=== PATIENT | male | born 1985 | race Caucasian/White ===

== ENCOUNTER 2018-09-11 12:43 | Emergency (ER) | payer OTHER ==
[2018-09-11] MEDS ORDERED: IPRATROPIUM/ALBUTEROL 0.5-2.5 MG/3 ML AMPUL NEB ONE (14:35)
[2018-09-11 15:46] LABS: A TYPE INFLUENZA AG NEGATIVE (NEGATIVE); B INFLUENZA AG NEGATIVE (NEGATIVE)
--- NOTE | 2018-09-11 15:52 | ER Document Report ---
HPI - HPI Time Seen by Provider: 09/11/18 14:11 Pain Level: 4 Notes: Patient is an otherwise healthy 33-year-old man who presents to the emergency department with complaints of sore throat, chest congestion, body aches and nasal congestion. He reports a fever yesterday of 101. He denies any nausea, vomiting or diarrhea. - CONSTITUTIONAL Constitutional: REPORTS: Fever. DENIES: Chills - EENT EENT: REPORTS: Sore Throat Past Medical History - General Information source: Patient - Social History Smoking Status: Current Every Day Smoker Chew tobacco use (# tins/day): No Frequency of alcohol use: None Drug Abuse: None Family History: Reviewed & Not Pertinent Patient has suicidal ideation: No Patient has homicidal ideation: No - Past Medical History Cardiac Medical History: Reports: Hx Hypertension Renal/ Medical History: Denies: Hx Peritoneal Dialysis Vertical Provider Document - CONSTITUTIONAL Notes: PHYSICAL EXAMINATION: GENERAL: Well-appearing, well-nourished and in no acute distress. HEAD: Atraumatic, normocephalic. EYES: Pupils equal round extraocular movements intact, conjunctiva are normal. ENT: Nares patent with clear rhinorrhea. Tonsils mildly erythematous but without swelling or exudates. NECK: Normal range of motion no cervical lymphadenopathy., LUNGS: No respiratory distress, mild expiratory wheezes noted bilaterally. Musculoskeletal: Normal range of motion NEUROLOGICAL: Normal speech, normal gait. PSYCH: Normal mood, normal affect. SKIN: Warm, Dry, normal turgor, no rashes or lesions noted. - INFECTION CONTROL TRAVEL OUTSIDE OF THE [place] IN LAST 30 DAYS: No Course - Re-evaluation Re-evalutation: Patient was given one treatment of DuoNeb which resolved his wheezing. Rapid strep was negative, influenza was negative. Patient will be discharged home with likely viral upper respiratory illness. Patient does report he is out of his blood pressure medication, I will refill this for him as well as he states he is in between doctors at the moment while he is getting approval for the [place]. - Vital Signs Vital signs: Temp Pulse Resp BP Pulse Ox 98.3 F 110 H 17 157/107 H 100 09/11/18 12:59 09/11/18 12:59 09/11/18 12:59 09/11/18 12:59 09/11/18 12:59 Discharge - Discharge Clinical Impression: Medication refill, Viral upper respiratory infection Hypertension Qualifiers: Hypertension type: unspecified Qualified Code(s): I10 - Essential (primary) hypertension Condition: Stable Disposition: HOME, SELF-CARE Additional Instructions: Your symptoms are most likely due to a viral infection it should resolve over the next 7-14 days. You should take arai-ved-sypvlgf guanfacine per bottle instructions to help thin the mucus. For nasal congestion: I would recommend that you get upyw-bpn-ciacogt oxymetazoline also known is afrin. Use only per bottle instructions and be sure to never use this for more than 3 days if you can develop severe rebound congestion. You may also use tylenol or ibuprofen as needed for aches and thorat discomfort. Please be sure to drink plenty of fluids and get rest. Return to the emergency department he began having difficulty breathing, chest pain, persistent vomiting, or any other symptoms that are concerning to you. Prescriptions: Lisinopril [Prinivil] 10 mg PO DAILY #30 tablet Prednisone [Deltasone 20 mg Tablet] 3 tab PO DAILY 5 Days #15 tablet Forms: Return to Work Referrals: [facility] [Primary Care Provider] - Follow up as needed
[2018-09-11 16:18] VITALS: BP 160/107
== END 2018-09-11 16:22 | disposition home or self-care (01) ==
LOC: ER 12:43
DX: J06.9 Acute upper respiratory infection, unspecified (principal); B97.89 Other viral agents as the cause of diseases classified elsewhere; I10 Essential (primary) hypertension; Z76.0 Encounter for issue of repeat prescription; J02.9 Acute pharyngitis, unspecified; R09.89 Other specified symptoms and signs involving the circulatory and respiratory systems; R09.81 Nasal congestion; R50.9 Fever, unspecified; J34.89 Other specified disorders of nose and nasal sinuses; F17.200 Nicotine dependence, unspecified, uncomplicated
CPT/HCPCS: 94640; 99283; 87070; 87880; 87804; J7620

== ENCOUNTER 2020-05-18 11:26 | Emergency (ER) | payer OTHER ==
[2020-05-18 11:34] VITALS: BP 181/105
[2020-05-18] MEDS ORDERED: CEPHALEXIN 500 MG CAPSULE PO ONE (12:31)
--- NOTE | 2020-05-18 12:33 | ER Document Report ---
ED Medical Screen (RME) - General Stated Complaint: FINGER PAIN Time Seen by Provider: 05/18/20 12:29 Primary Care Provider: [facility] [Primary Care Provider] - Follow up as needed Notes: HPI: 35-year-old male presenting for infection to the right index finger. Patient was working on a deck 2 to 3 days ago and got a splinter into the distal index finger on the volar pad. States he removed some of the splinter does not know if he removed it all now with increased swelling redness and difficulty flexing the finger at the distal tip states he is up-to-date on his tetanus immunization PHYSICAL EXAMINATION: Erythema with some induration of fluctuance over the proximal volar pad of the distal phalanx of the right index finger. Some difficulty with flexion at the DIP joint space region I have greeted and performed a rapid initial assessment of this patient. A comprehensive ED assessment and evaluation of the patient, analysis of test results and completion of medical decision making process will be conducted by an additional ED providers. TRAVEL OUTSIDE OF THE [place] IN LAST 30 DAYS: No - Related Data Allergies/Adverse Reactions: No Known Allergies Allergy (Verified 05/18/20 12:27) Past Medical History - Past Medical History Cardiac Medical History: Reports: Hx Hypertension Renal/ Medical History: Denies: Hx Peritoneal Dialysis Physical Exam - Vital signs Vitals: Temp Pulse BP Pulse Ox 97.4 F 110 H 181/105 H 99 05/18/20 11:33 05/18/20 11:33 05/18/20 11:33 05/18/20 11:33 Course - Vital Signs Vital signs: Temp Pulse Resp BP Pulse Ox 97.4 F 110 H 181/105 H 99 05/18/20 11:33 05/18/20 11:33 05/18/20 11:33 05/18/20 11:33 Doctor's Discharge - Discharge Referrals: [facility] [Primary Care [facility]] - Follow up as needed
--- NOTE | 2020-05-18 13:01 | RADIOLOGY REPORT (SQ) ---
EXAM DESCRIPTION: FINGER RIGHT IMAGES COMPLETED DATE/TIME: 05/18/2020 12:52 pm REASON FOR STUDY: 2nd finger, for FB COMPARISON: None. NUMBER OF VIEWS: Three views. TECHNIQUE: AP, lateral, and oblique images acquired of the right second finger. LIMITATIONS: None. FINDINGS: MINERALIZATION: Normal. BONES: No acute fracture or dislocation. No worrisome bone lesions. SOFT TISSUES: No soft tissue swelling. No foreign body. OTHER: No other significant finding. IMPRESSION: NO RADIOGRAPHIC EVIDENCE OF ACUTE INJURY. NO RADIOPAQUE FOREIGN BODY. COMMENT: SITE OF TRAUMA/COMPLAINT MARKED/STAMP COMPLETED: YES. TECHNICAL DOCUMENTATION: JOB ID: [id number] 2010 [employer]- All Rights Reserved Reading location - IP/workstation name: [email or web address]
== END 2020-05-18 14:46 | disposition left against medical advice (07) ==
LOC: ER 11:26
DX: L08.9 Local infection of the skin and subcutaneous tissue, unspecified (principal); I10 Essential (primary) hypertension; Z53.20 Procedure and treatment not carried out because of patient's decision for unspecified reasons
CPT/HCPCS: 99281